=== PATIENT | male | born 1945 | race Caucasian/White ===

== ENCOUNTER 2017-04-17 16:41 | Observation (INO) | payer OTHER, MEDICARE ==
[~2017-04-17] VITALS: Ht 177.8 cm; Wt 65.0 kg
[~2017-04-17 16:41] MED LIST: ALBU.63PRN NEB; AMOX875T2 PO; ERGO50000 PO; LISI-360 PO; OMEP20TA39 PO; SYNT112T PO; TIMO0.2525 EACH EYE
[2017-04-17 16:42] VITALS: BP 126/59; PULSE 72; RESP 16; TEMP 98.5; O2SAT 96
--- NOTE | 2017-04-17 16:50 | PD ---
Physical Exam Time Seen by Provider: 16:48 Narrative 71 y/o male here for evaluation of dyspnea with exertion, fatigue as well as a heart murmur, 17 pound weight loss over past 6 months[facility] Vital signs reviewed. Seen at triage desk. Awaiting bed placement. Data Data Last Documented VS Vital Signs Date Time Temp Pulse Resp B/P (MAP) Pulse Ox O2 Delivery O2 Flow Rate FiO2 04/17/17 16:42 98.5 72 16 126/59 (81) 96 Room Air [facility] Medical Record Reviewed: Yes Supervised Visit with MOSES: Sal Olivera Apr 17, 2017 16:50
[2017-04-17] MEDS ORDERED: SODIUM CHLORIDE 0.9% FLUSH 10 ML FLUSH IVF PRN (17:45)
[2017-04-17 17:46] VITALS: BP 147/65; PULSE 76; RESP 16; O2SAT 97
[2017-04-17] MEDS ORDERED: SODIUM CHLOR 0.9% 1000 ML INJ 1,000 ML IV SCH (17:55)
[2017-04-17] MEDS ORDERED: ONDANSETRON HCL 4 MG/2 ML VIAL IVP ONE (18:00)
[2017-04-17] MEDS ORDERED: PANTOPRAZOLE SODIUM 40 MG VIAL IVP ONE (18:00)
--- NOTE | 2017-04-17 18:03 | PD ---
HPI Chief Complaint: Cardiac Complaint Time Seen by Provider: 17:57 Travel History International Travel<30 days: No Contact w/Intl Traveler<30days: No Traveled to known affect area: No History of Present Illness HPI 71-year-old [facility] with history of increased dyspnea and weakness over the past several weeks. Patient states recent history of nausea treated with [id number] medication and some darker than normal stools over the past several weeks. Patient denies chest pain, cough, wheezing, or lower extremity edema. Patient does have history of heart murmur, but no previous history of CHF. [facility] and sent here for further evaluation and treatment. Patient states he has intermittent episodes of this weakness and dyspnea, but is definitely worse with exertion. Patient's sister is here who relates that the patient is a drinker although he denies drinking more than 2-3 drinks a day. Patient's had decreased appetite over the past several months, with a 17 pound weight loss noted. Patient tends to have trouble with memory and is unsure if he's ever had an endoscopy or colonoscopy. Patient has no known drug allergies. PFSH Past Medical History Anxiety: No Depression: Yes Cancer: No Cardiovascular Problems: Yes High Cholesterol: Yes Chemotherapy: No Diminished Hearing: No Endocrine: Yes Gastrointestinal Disorders: Yes (DIARRHEA. COLONOSCOPY SCHEDULED JUN) Glaucoma: Yes Genitourinary: No Hypertension: Yes Immune Disorder: No Musculoskeletal: No Neurologic: No Psychiatric: Yes Reproductive: No Respiratory: No Radiation Therapy: No Thyroid Disease: Yes Ulcer: Yes Social History Alcohol Use: Yes (1-2 DRINKS PER DAY PER PT) Tobacco Use: No Substance Use: No Allergies-Medications (Allergen,Severity, Reaction): Coded Allergies: No Known Allergies (Verified , 04/17/17) Reported Meds & Prescriptions Reported Meds & Active Scripts Active Reported Mucus Relief ER (Guaifenesin) 600 Mg Tab 400 Mg PO DAILY Fluticasone Nasal [facility] 50 Mcg/Act Naspr 30 Mcg EACH NARE DAILY 50 mcg/spray Timolol Opth Drops 0.5 % Soln 1 Drop EACH EYE DAILY Galantamine (Galantamine Hydrobromide) 4 Mg Tab 2.4 Mg PO DAILY Risperidone 1 Mg Tab 1 Mg PO DAILY Brimonidine Opth Drops (Brimonidine Tartrate) 0.15% Soln 1 Drop EACH EYE BID Amlodipine (Amlodipine Besylate) 5 Mg Tab 5 Mg PO DAILY Escitalopram (Escitalopram Oxalate) 20 Mg Tab 20 Mg PO DAILY Review of Systems ROS Limitations: Poor Historian Except as stated in HPI: all other systems reviewed are Neg General / Constitutional: No: Fever Eyes: No: Visual changes HENT: No: Headaches Cardiovascular: No: Chest Pain or Discomfort Respiratory: Positive: Shortness of Breath, No: Cough, Wheezing, Sneezing, Orthopnea, Hemoptysis, Stridor, Night Sweats, Pleuritic Pain Gastrointestinal: Positive: Nausea, Changes in Bowel Habits, Loss of Appetite, No: Vomiting, Diarrhea, Abdominal Pain, Indigestion, Dysphagia Genitourinary: No: Dysuria Musculoskeletal: No: Pain Skin: No Rash Neurologic: No: Weakness Psychiatric: No: Depression Endocrine: No: Polydipsia Hematologic/Lymphatic: No: Easy Bruising Physical Exam Exam Limitations: Poor Historian Narrative GENERAL: Patient appears in no acute distress. SKIN: Warm and dry. Somewhat diminished pallor. Somewhat diminished turgor as well. HEAD: Atraumatic. Normocephalic. EYES: Pupils equal and round. No scleral icterus. No injection or drainage. Mild to moderate conjunctival pallor bilaterally. ENT: No nasal bleeding or discharge. Mucous membranes pink and moist. Pharynx is clear. Airway is patent. NECK: Trachea midline. Supple nontender. CARDIOVASCULAR: Regular rate and rhythm. Patient is a 2 over 5 holosystolic murmur. This is known to the patient. RESPIRATORY: No accessory muscle use. Clear to auscultation. Breath sounds equal bilaterally. GASTROINTESTINAL: Abdomen soft, non-tender, nondistended. Hepatic and splenic margins not palpable. MUSCULOSKELETAL: Extremities without clubbing, cyanosis, or edema. No obvious deformities. NEUROLOGICAL: Awake and alert. No obvious cranial nerve deficits. Motor grossly within normal limits. Five out of 5 muscle strength in the arms and legs. Normal speech. PSYCHIATRIC: Appropriate mood and affect; insight and judgment normal. Data Data Last Documented VS Vital Signs Date Time Temp Pulse Resp B/P (MAP) Pulse Ox O2 Delivery O2 Flow Rate FiO2 04/17/17 17:46 76 16 147/65 (92) 97 Room Air 04/17/17 16:42 98.5 Orders Orders Electrocardiogram (04/17/17 ) Complete Blood Count With Diff (04/17/17 17:45) Comprehensive Metabolic Panel (04/17/17 17:45) B-Type Natriuretic Peptide (04/17/17 17:45) Magnesium (Mg) (04/17/17 17:45) Ckmb (Isoenzyme) Profile (04/17/17 17:45) Troponin I (04/17/17 17:45) Iv Access Insert/Monitor (04/17/17 17:45) Electrocardiogram (04/17/17 17:45) Ecg Monitoring (04/17/17 17:45) Oximetry (04/17/17 17:45) Chest, Single Ap (04/17/17 17:45) Sodium Chloride 0.9% Flush (Ns Flush) (04/17/17 17:45) Prothrombin Time / Inr (Pt) (04/17/17 17:55) Act Partial Throm Time (Ptt) (04/17/17 17:55) Ondansetron Inj (Zofran Inj) (04/17/17 18:00) Pantoprazole Inj (Protonix Inj) (04/17/17 18:00) Sodium Chlor 0.9% 1000 Ml Inj (Ns 1000 M (04/17/17 17:55) CKMB (04/17/17 18:33) CKMB% (04/17/17 18:33) Pantoprazole Inj (Protonix Inj) (04/17/17 20:15) Admit Order (Ed Use Only) (04/17/17 21:19) Labs Laboratory Tests Test 04/17/17 18:33 White Blood Count 8.9 TH/MM3 Red Blood Count 3.85 MIL/MM3 Hemoglobin 10.8 GM/DL Hematocrit 32.8 % Mean Corpuscular Volume 85.3 FL Mean Corpuscular Hemoglobin 28.1 PG Mean Corpuscular Hemoglobin Concent 32.9 % Red Cell Distribution Width 19.7 % Platelet Count 300 TH/MM3 Mean Platelet Volume 7.8 FL Neutrophils (%) (Auto) 82.8 % Lymphocytes (%) (Auto) 6.2 % Monocytes (%) (Auto) 10.7 % Eosinophils (%) (Auto) 0.0 % Basophils (%) (Auto) 0.3 % Neutrophils # (Auto) 7.4 TH/MM3 Lymphocytes # (Auto) 0.6 TH/MM3 Monocytes # (Auto) 1.0 TH/MM3 Eosinophils # (Auto) 0.0 TH/MM3 Basophils # (Auto) 0.0 TH/MM3 CBC Comment DIFF FINAL Differential Comment Prothrombin Time 10.8 SEC Prothromb Time International Ratio 1.0 RATIO Activated Partial Thromboplast Time 23.6 SEC Blood Urea Nitrogen 17 MG/DL Creatinine 1.75 MG/DL Random Glucose 150 MG/DL Total Protein 7.6 GM/DL Albumin 4.5 GM/DL Calcium Level 9.7 MG/DL Magnesium Level 1.7 MG/DL Alkaline Phosphatase 113 U/L Aspartate Amino Transf (AST/SGOT) 54 U/L Alanine Aminotransferase (ALT/SGPT) 74 U/L Total Bilirubin 0.9 MG/DL Sodium Level 133 MEQ/L Potassium Level 3.9 MEQ/L Chloride Level 93 MEQ/L Carbon Dioxide Level 29.0 MEQ/L Anion Gap 11 MEQ/L Estimat Glomerular Filtration Rate 38 ML/MIN Total Creatine Kinase 142 U/L Creatine Kinase MB 3.6 NG/ML Troponin I LESS THAN 0.02 NG/ML B-Type Natriuretic Peptide 217 PG/ML MDM Medical Decision Making Medical Screen Exam Complete: Yes Emergency Medical Condition: Yes Differential Diagnosis Exertional dyspnea. Coronary syndrome. CHF. Anemia. Possible gastritis. Electrolyte imbalance. History of EtOH abuse. Narrative Course Patient is medically stable at time of exam. EKG is ordered as well as chest x-ray. Labs ordered including CBC, CMP, coagulation studies, urinalysis, cardiac panel. IV access is obtained and the patient is given 40 mg pantoprazole IV, 4 mg Zofran IV, and 1000 mL normal saline bolus. Rectal exam shows guaiac mildly positive. There was not a lot of stool in the vault. CBC shows mildly worse anemia compared to previous with hemoglobin of 10.8, hematocrit of 32.8 CMP shows sodium 133, chloride of 93, creatinine 1.75 which is slightly higher than previous. Random glucose is 150. AST is 54, Troponin is less than 0.02 and BNP is 217. Chest x-ray shows no acute process. Small hiatal hernia is noted. Patient is discussed with Dr. Barajas who feels the patient is at risk for upper GI bleed with history of alcohol use and symptomatic exertional dyspnea. Patient is placed on a pantoprazole drip, and hospitalist's call for admission. Patient was discussed with Dr. Baptiste who accepted the patient for observation. Diagnosis Primary Impression: Upper GI bleed Additional Impressions: Exertional dyspnea Guaiac positive stools Admitting Information Admitting Physician Requests: Admit Condition: Stable Adrian Resendiz Apr 17, 2017 18:03
--- NOTE | 2017-04-17 18:14 | PD ---
Physical Exam Date Seen by Provider: Apr 17, 2017 Narrative This patient was sent to us by the [place] clinic for evaluation of chronic dyspnea on exertion and possible GI blood loss. Data Data Last Documented VS Vital Signs Date Time Temp Pulse Resp B/P (MAP) Pulse Ox O2 Delivery O2 Flow Rate FiO2 04/17/17 17:46 76 16 147/65 (92) 97 Room Air 04/17/17 16:42 98.5 Orders Orders Electrocardiogram (04/17/17 ) Complete Blood Count With Diff (04/17/17 17:45) Comprehensive Metabolic Panel (04/17/17 17:45) B-Type Natriuretic Peptide (04/17/17 17:45) Magnesium (Mg) (04/17/17 17:45) Ckmb (Isoenzyme) Profile (04/17/17 17:45) Troponin I (04/17/17 17:45) Iv Access Insert/Monitor (04/17/17 17:45) Electrocardiogram (04/17/17 17:45) Ecg Monitoring (04/17/17 17:45) Oximetry (04/17/17 17:45) Chest, Single Ap (04/17/17 17:45) Sodium Chloride 0.9% Flush (Ns Flush) (04/17/17 17:45) Prothrombin Time / Inr (Pt) (04/17/17 17:55) Act Partial Throm Time (Ptt) (04/17/17 17:55) Ondansetron Inj (Zofran Inj) (04/17/17 18:00) Pantoprazole Inj (Protonix Inj) (04/17/17 18:00) Sodium Chlor 0.9% 1000 Ml Inj (Ns 1000 M (04/17/17 17:55) MDM Supervised Visit with MOSES: Yes Narrative Course I, Dr. Estrada, have reviewed the advance practice practitioner's documentation and am in agreement, met with the patient face to face, made the diagnosis, and the medical decision making was done by me. *My assessment and Findings: The patient is awake and alert but confused. He does not appear to be in any acute distress. He is a reported alcoholic. He does not smell of alcohol currently. Please see Andrade Resendiz's note for final diagnosis and disposition. Condition: Stable Peg Estrada MD Apr 17, 2017 18:14
--- NOTE | 2017-04-17 18:18 | RADRPT ---
EXAM DATE/TIME: 04/17/2017 17:56 [facility] COMPARISON: CHEST SINGLE AP, November 01, 2015, 9:50. INDICATIONS : Short of breath. MEDICAL HISTORY : None. SURGICAL HISTORY : None. ENCOUNTER: Initial ACUITY: 1 day PAIN SCORE: 0/10 LOCATION: Bilateral chest FINDINGS: A single view of the chest demonstrates the lungs to be symmetrically aerated without evidence of mas s, infiltrate or effusion. The cardiomediastinal contours are unremarkable. Osseous structures are intact. A hiatal hernia is likely. CONCLUSION: No evidence of acute cardiopulmonary disease. Probable hiatal hernia present. Haim Valencia MD on April 17, 2017 at 18:16 Board Certified Radiologist. This report was verified electronically.
[2017-04-17] MEDS ORDERED: AMLO5TAB2 PO (18:29)
[2017-04-17] MEDS ORDERED: GUAI600T11 PO (18:29)
[2017-04-17] MEDS ORDERED: ESCI20TA PO (18:29)
[2017-04-17] MEDS ORDERED: FLUT50SP EACH NARE (18:29)
[2017-04-17] MEDS ORDERED: TIMO0.5S30 EACH EYE (18:29)
[2017-04-17] MEDS ORDERED: BRIM0.155 EACH EYE (18:29)
[2017-04-17] MEDS ORDERED: RISP1TAB2 PO (18:29)
[2017-04-17] MEDS ORDERED: GALA4TAB PO (18:29)
[2017-04-17 18:49] LABS: AUTOMATED NEUTROPHIL # 7.4 TH/MM3 (1.8-7.7); BASOPHIL % 0.3 % (0.0-2.0); HEMATOCRIT 32.8 % (39.0-51.0); HEMO FLAGS DIFF FINAL; LYMPH % 6.2 % (9.0-44.0); LYMPHOCYTE # 0.6 TH/MM3 (1.0-4.8); MEAN CELL VOLUME 85.3 FL (80.0-100.0); MEAN CORPUSCULAR HEMOGLOBIN 28.1 PG (27.0-34.0); MEAN CORPUSCULAR HGB CONC 32.9 % (32.0-36.0); MONO % 10.7 % (0.0-8.0); NEUT % 82.8 % (16.0-70.0); PLATELET COUNT 300 TH/MM3 (150-450); RED BLOOD COUNT 3.85 MIL/MM3 (4.50-5.90); RED CELL DISTRIBUTION WIDTH 19.7 % (11.6-17.2); WHITE BLOOD COUNT 8.9 TH/MM3 (4.0-11.0)
[2017-04-17 19:09] LABS: ANION GAP 11 MEQ/L (5-15); AST (GOT) 54 U/L (15-37); BLOOD UREA NITROGEN 17 MG/DL (7-18); CHLORIDE 93 MEQ/L (98-107); GLOMERULAR FILTRATION RATE 38 ML/MIN (>89); MAGNESIUM 1.7 MG/DL (1.5-2.5); POTASSIUM 3.9 MEQ/L (3.5-5.1); SODIUM (NA) 133 MEQ/L (136-145)
[2017-04-17 19:12] LABS: APTT (PATIENT) 23.6 SEC (24.3-30.1); PROTHROMBIN TIME - PATIENT 10.8 SEC (9.8-11.6)
[2017-04-17 19:13] LABS: ALKALINE PHOSPHATASE 113 U/L (45-117); ALT (GPT) 74 U/L (12-78); CREATINE KINASE 142 U/L (39-308); TOTAL BILIRUBIN ADULT 0.9 MG/DL (0.2-1.0)
[2017-04-17 19:26] LABS: CKMB 3.6 NG/ML (0.5-3.6)
[2017-04-17] MEDS ORDERED: LORazepam 1 MG TAB PO ONE (21:45)
[2017-04-17] MEDS ORDERED: NALOXONE HCL 0.4 MG/ML AMP IV PUSH PRN (21:45)
[2017-04-17] MEDS ORDERED: SODIUM CHLORIDE 0.9% FLUSH 10 ML FLUSH IV FLUSH PRN (21:45)
[2017-04-17 22:00] VITALS: PULSE 69
[2017-04-17 22:25] VITALS: BP 128/58; PULSE 72; RESP 18; TEMP 98.1; O2SAT 98
[2017-04-17] MEDS ORDERED: HALOPERIDOL LACTATE 5 MG/ML AMP IM ONE (23:45)
[2017-04-18] VITALS (7 sets, daily range): BP systolic 101–149; BP diastolic 58–77; PULSE 68–80; RESP 16–20; TEMP 97–98; O2SAT 93–96
[2017-04-18] MEDS: PANTOPRAZOLE INJ 80 MG in SODIUM CHLORIDE 0.9% INJ 100 ML IV SCH ×2 (00:25→20:15)
[2017-04-18 00:55] LABS: HEMATOCRIT 31.7 % (39.0-51.0); REVIEW FLAG FINAL
--- NOTE | 2017-04-18 04:16 | HHI.HP ---
[facility] Admission Diagnosis GI Bleed/Dyspnea with Exertion Diagnoses: Travel History International Travel<30 Days: No Contact w/Intl Traveler <30 Da: No Traveled to Known Affected Are: No History of Present Illness History from patient, ER. [place] Communication, and review of medical records sent by the [place]. Patient himself is somewhat of a poor historian. He was found at the time of my exam on 4 point restraints. He tells me that this is 1978. He thinks it was September. He thinks Peña Astorga is the president. However he is very pleasant and wouldn't answer questions. He basically does not remember why he was in the hospital. He states that he was visiting a friend in He knows he was in a hotel. As per [facility] paperwork that was sent with the patient, patient was seen at the [facility] clinic yesterday April 17, 2017. He was accompanied by his sister. He was complaining of intermittent severe weakness over several months, falling from bed about 3 times in the past few weeks. Sister was reported that patient was having extreme fatigue and sweating with exertion. Patient has had weight loss of 17 pounds since May 2016 visit to the [place] clinic. Further records, patient has chronic intermittent nausea and diarrhea as well. Does have chronic memory problems. Sister reports that patient forgets to take his medications at times. last seen by pcp previous to today was 01/2016 because he forgets appointments In the emergency room, patient was found to have positive guaiac. Apparently there was also complained of dark stool. Review of Systems Except as stated in HPI: all other systems reviewed are Neg Past Family Social History Past Medical History GI ulcers GERD oropharyngeal dysphagia glaucoma catarct hypogonadism carotid artery stenosis cognitive impairment depression hypertension OA colonic polyps hypothyroidism Past Surgical History none per patient [facility] not [facility] Reported Medications pt is non compliant, forgetful to take meds he tells me he is not taking any Allergies: Coded Allergies: No Known Allergies (Verified , 04/17/17) Family History none that he knows of Social History denies smoking/ etoh abuse or drug abuse states quit smoking in high school denies any iv drug abuse Physical Exam Vital Signs Vital Signs Date Time Temp Pulse Resp B/P (MAP) Pulse Ox O2 Delivery O2 Flow Rate FiO2 04/18/17 04:00 97.0 78 141/69 (93) 93 04/17/17 22:25 98.1 72 18 128/58 (81) 98 04/17/17 22:00 69 04/17/17 17:46 76 16 147/65 (92) 97 Room Air 04/17/17 16:42 98.5 72 16 126/59 (81) 96 Room Air Physical Exam GENERAL: This is a well-nourished, well-developed patient, in no apparent distress. Confused, but pleasant at the time of my exam. SKIN: No rashes, ecchymoses or lesions. Cool and dry. HEAD: Atraumatic. Normocephalic. No temporal or scalp tenderness. EYES: No scleral icterus. No injection or drainage. ENT: Nose without bleeding, purulent drainage or septal hematoma. Airway patent. NECK: Trachea midline. No JVD or lymphadenopathy. Supple, nontender, no meningeal signs. CARDIOVASCULAR: Regular rate and rhythm without murmurs, gallops, or rubs. RESPIRATORY: Clear to auscultation. Breath sounds equal bilaterally. No wheezes , rales, or rhonchi. GASTROINTESTINAL: Abdomen soft, non-tender, nondistended. No guarding. MUSCULOSKELETAL: Extremities without clubbing, cyanosis, or edema. No calf tenderness. NEUROLOGICAL: Awake and alert. Motor and sensory grossly within normal limits. Normal speech. Laboratory Laboratory Tests Test 04/17/17 18:33 04/18/17 00:20 White Blood Count 8.9 Red Blood Count 3.85 Hemoglobin 10.8 10.3 Hematocrit 32.8 31.7 Mean Corpuscular Volume 85.3 Mean Corpuscular Hemoglobin 28.1 Mean Corpuscular Hemoglobin Concent 32.9 Red Cell Distribution Width 19.7 Platelet Count 300 Mean Platelet Volume 7.8 Neutrophils (%) (Auto) 82.8 Lymphocytes (%) (Auto) 6.2 Monocytes (%) (Auto) 10.7 Eosinophils (%) (Auto) 0.0 Basophils (%) (Auto) 0.3 Neutrophils # (Auto) 7.4 Lymphocytes # (Auto) 0.6 Monocytes # (Auto) 1.0 Eosinophils # (Auto) 0.0 Basophils # (Auto) 0.0 CBC Comment DIFF FINAL Differential Comment Prothrombin Time 10.8 Prothromb Time International Ratio 1.0 Activated Partial Thromboplast Time 23.6 Blood Urea Nitrogen 17 Creatinine 1.75 Random Glucose 150 Total Protein 7.6 Albumin 4.5 Calcium Level 9.7 Magnesium Level 1.7 Alkaline Phosphatase 113 Aspartate Amino Transf (AST/SGOT) 54 Alanine Aminotransferase (ALT/SGPT) 74 Total Bilirubin 0.9 Sodium Level 133 Potassium Level 3.9 Chloride Level 93 Carbon Dioxide Level 29.0 Anion Gap 11 Estimat Glomerular Filtration Rate 38 Total Creatine Kinase 142 Creatine Kinase MB 3.6 Troponin I LESS THAN 0.02 B-Type Natriuretic Peptide 217 Result Diagram: 04/18/17 0020 04/17/17 1833 Imaging Last 48 hours Impressions Chest X-Ray 04/17/17 1745 Signed Impressions: Service Date/Time: Monday, April 17, 2017 17:56 - CONCLUSION: No evidence of acute cardiopulmonary disease. Probable hiatal hernia present. Haim Valencia MD echo 09/2015 [place] - grade I diastolic dysfunction, EF 65-70% right ventricular pressure 40-50mmHg Caprini VTE Risk Assessment Caprini VTE Risk Assessment: Mod/High Risk (score >= 2) Caprini Risk Assessment Model Point Value = 1 Point Value = 2 Point Value = 3 Point Value = 5 Age 41-60 Minor surgery BMI > 25 kg/m2 Swollen legs Varicose veins or History of unexplained or recurrent spontaneous Oral contraceptives or hormone replacement Sepsis (< 1 month) Serious lung disease, including pneumonia (< 1 month) Abnormal pulmonary function Acute myocardial infarction Congestive heart failure (< 1 month) History of inflammatory bowel disease Medical patient at bed rest Age 61-74 Arthroscopic surgery Major open surgery (> 45 min) Laparoscopic surgery (> 45 min) Malignancy Confined to bed (> 72 hours) Immobilizing plaster cast Central venous access Age >= 75 History of VTE Family history of VTE Factor V Leiden Prothrombin [id number] Lupus anticoagulant Anticardiolipin antibodies Elevated serum homocysteine Heparin-induced thrombocytopenia Other congenital or acquired thrombophilia Stroke (< 1 month) Elective arthroplasty Hip, pelvis, or leg fracture Acute spinal cord injury (< 1 month) Prophylaxis Regimen Total Risk Factor Score Risk Level Prophylaxis Regimen 0-1 Low Early ambulation 2 Moderate Order ONE of the following: *Sequential Compression Device (SCD) *Heparin 5000 units SQ BID 3-4 Higher Order ONE of the following medications: *Heparin 5000 units SQ TID *Enoxaparin/Lovenox 40 mg SQ daily (WT < 150 kg, CrCl > 30 mL/min) *Enoxaparin/Lovenox 30 mg SQ daily (WT < 150 kg, CrCl > 10-29 mL/min) *Enoxaparin/Lovenox 30 mg SQ BID (WT < 150 kg, CrCl > 30 mL/min) AND/OR *Sequential Compression Device (SCD) 5 or more Highest Order ONE of the following medications: *Heparin 5000 units SQ TID (Preferred with Epidurals) *Enoxaparin/Lovenox 40 mg SQ daily (WT < 150 kg, CrCl > 30 mL/min) *Enoxaparin/Lovenox 30 mg SQ daily (WT < 150 kg, CrCl > 10-29 mL/min) *Enoxaparin/Lovenox 30 mg SQ BID (WT < 150 kg, CrCl > 30 mL/min) AND *Sequential Compression Device (SCD) Assessment and Plan Assessment and Plan Impression: generalized weakness and falls dyspnea on exertion Positive Guaiac 17lbs weight loss since 05/2016 altered mental status- likely from delirium from dementia- but rule out acute issues such as urine retention/ UTI/intracranial etiologies Hypertension History of GI ulcers GERD oropharyngeal dysphagia History of carotid artery stenosis History of depression History of cognitive impairment/dementia Osteoarthritis History of colonic polyps Hypothyroidism Plan: serial hgb/hct ppi drip gi consulted for anemia and weight loss workup fall precautions Would obtain CT of the brain to rule out intracranial etiologies as the cause of his delirium/confusion. Although patient does have history of dementia/ cognitive impairment her chart, patient was apparently awake and alert enough to be given some of the history to the ER team. However upon his stay in the [facility], he was quite combative and delirious that he required restraints per nursing staff. Therefore would need to rule out intracranial etiologies. Also obtain bladder scan now. Blood alcohol level. Alcohol withdrawal precautions. Patient reports he drinks only about 2-3 beers and not every day. Once in a while. However her sister was reporting to staff members that he drinks about 3 beers a day. Would need to make sure his confusion and delirium is not from alcohol withdrawal. DVT prophylaxiswith SCD. GI prophylaxis on pantoprazole. Discussed Condition With Patient, patient's nurse, ER Lakshmi Sanchez MD Apr 18, 2017 04:16
[2017-04-18 07:38] LABS: BASOPHIL % 0.2 % (0.0-2.0); EOSINOPHIL % 0.3 % (0.0-4.0); HEMATOCRIT 31.3 % (39.0-51.0); HEMO FLAGS DIFF FINAL; LYMPH % 5.9 % (9.0-44.0); LYMPHOCYTE # 0.5 TH/MM3 (1.0-4.8); MEAN CELL VOLUME 85.5 FL (80.0-100.0); MEAN CORPUSCULAR HEMOGLOBIN 27.3 PG (27.0-34.0); MONO % 8.8 % (0.0-8.0); NEUT % 84.8 % (16.0-70.0); PLATELET COUNT 288 TH/MM3 (150-450); RED BLOOD COUNT 3.67 MIL/MM3 (4.50-5.90); RED CELL DISTRIBUTION WIDTH 20.1 % (11.6-17.2); WHITE BLOOD COUNT 8.2 TH/MM3 (4.0-11.0)
--- NOTE | 2017-04-18 07:46 | EKG ---
Date Performed: 04/17/2017 Time Performed: 18:16:28 PTAGE: 71 years EKG: Sinus rhythm NONSPECIFIC T-WAVE ABNORMALITY PROLONGED QT INTERVAL ABNORMAL ECG Since PREVIOUS TRACING , no significant change noted PREVIOUS TRACIN10/28/2015 11.24 DOCTOR: Joann Locke Interpretating Date/Time 04/18/2017 07:45:01
[2017-04-18 07:53] LABS: BICARBONATE 29.1 MEQ/L (21.0-32.0); POTASSIUM 3.2 MEQ/L (3.5-5.1)
[2017-04-18] MEDS: SODIUM CHLOR 0.9% 1000 ML INJ 1,000 ML IV SCH (08:00)
--- NOTE | 2017-04-18 11:25 | HHI.PR ---
Subjective Remarks Follow-up for GI bleed, chest discomfort. The patient is seen with RN at bedside. He is not a great historian. The patient thinks that he was sent from the [place] has of "heart pain". He locates the pain around his xiphoid process. He states he last had the pain 3 days ago. He denies any shortness of breath. He hasn't noticed any dark or bloody stools. No lower extremity swelling. He thinks he might have had a stress test recently with the [place], but he does not remember the results. He does not recall any history of heart disease. Objective Vitals Vital Signs Date Time Temp Pulse Resp B/P (MAP) Pulse Ox O2 Delivery O2 Flow Rate FiO2 04/18/17 08:00 97.9 70 16 149/77 (101) 95 04/18/17 04:00 97.0 78 141/69 (93) 93 04/17/17 22:25 98.1 72 18 128/58 (81) 98 04/17/17 22:00 69 04/17/17 17:46 76 16 147/65 (92) 97 Room Air 04/17/17 16:42 98.5 72 16 126/59 (81) 96 Room Air Result Diagram: 04/18/17 0637 04/18/17 0637 Imaging Last Impressions Chest X-Ray 04/17/17 1745 Signed Impressions: Service Date/Time: Monday, April 17, 2017 17:56 - CONCLUSION: No evidence of acute cardiopulmonary disease. Probable hiatal hernia present. Haim Valencia MD Objective Remarks GENERAL: Well-developed well-nourished. In no acute distress. SKIN: Warm and dry. No lesions noted. HEENT: Normocephalic. Pupils equal and round. Mucous membranes pink and moist. CARDIOVASCULAR: Regular rate and rhythm. No murmur appreciated. No chest wall TTP. RESPIRATORY: No accessory muscle use. Clear to auscultation. Breath sounds equal bilaterally. GASTROINTESTINAL: Abdomen soft, non-tender, nondistended. Bowel sounds x4. MUSCULOSKELETAL: No obvious deformities. No clubbing or cyanosis. No edema. NEUROLOGICAL: Awake and alert. No focal neurological deficits. Moves upper and lower extremities spontaneously. Normal speech. PSYCHIATRIC: Presently pleasant mood and calm affect; insight and judgment fair. A/P Assessment and Plan 71-year-old male with past medical history of dementia, GERD/PUD [facility] and weakness over the past several weeks. Generalized weakness: Workup as below. PT eval and treat. Acute encephalopathy: Seems to be improving currently. Possibly related to dementia with agitation. Alcohol level within normal limits. Head CT and drug screen ordered. Add UA. Restraints if needed. GI bleed: Hemoccult positive in the ED. Reported history of GERD/ulcers. Normocytic anemia, currently stable. Continue Protonix gtt. Consult gastroenterology. Monitor H&H. Atypical chest pain: Possibly secondary to GI etiology as above. Initial troponin within normal limits. EKG with NSR, nonspecific T-wave changes. Chest x-ray clear, hiatal hernia. Continue to trend cardiac enzymes and EKGs. Hold aspirin with GI bleed. Monitor on telemetry. PEBBLES: Creatinine 1.75, previously 0.85 on 11/06/15. Creatinine did improve to 1.44 with IVF. Continue IVF and follow-up BMP. Hypokalemia: Mild. Potassium 3.2. Replace orally. Follow up potassium and check magnesium. Mood disorder: Possibly exacerbating encephalopathy as above. Questionable medication compliance. Resume home Risperdal, escitalopram. Hypertension: BP recently controlled. Continue amlodipine. DVT prophylaxis: SCDs Discharge Planning Follow-up chest pain workup. Follow GI recommendations. Follow-up PT recommendations. Dane Lara Apr 18, 2017 11:25
[2017-04-18] MEDS: SODIUM CHLORIDE 0.9% FLUSH 10 ML FLUSH IV FLUSH SCH ×2 (11:41→20:16)
[2017-04-18] MEDS: ESCITALOPRAM OXALATE 20 MG TAB PO SCH (11:41)
[2017-04-18] MEDS: risperiDONE 1 MG TAB PO SCH (11:42)
[2017-04-18] MEDS: GALANTAMINE HYDROBROMIDE 4 MG TAB PO SCH (11:42)
[2017-04-18] MEDS: amLODIPine BESYLATE 5 MG TAB PO SCH (11:42)
[2017-04-18] MEDS ORDERED: POTASSIUM CHLORIDE 20 MEQ CONTROLLED RELEASE TAB PO ONE (12:00)
--- NOTE | 2017-04-18 12:31 | PD.CONS ---
HPI History of Present Illness This is a 71 year old male who presented to the emergency room for evaluation of fatigue and dyspnea on exertion. He is a poor historian. Apparently, he was referred from the [facility], complaining of intermittent severe generalized weakness with frequent falls for the past several months. He has a decreased appetite and has lost about 17 lbs since May of 2016. He reports intermittent nausea for the past several months. He takes an antiemetic at home , but does not recall the name. Usually, the nausea will start first and he takes his medicine. He states that the nausea then resolves and he has a pressure like pain in his epigastric area and eventually it resolves. He reports that he has been having loose dark stools for the past month, but has not had any today. He also has frequent heartburn. He denies any history of peptic ulcer disease. He does not drink, although he has in the past. At one point, there was talk of possible liver cirrhosis, but that he does not know for sure if he actually has this. According to the records, he has a history of GERD, stomach ulcers, oropharyngeal dysphagia, and colon polyps. He cannot recall when his last EGD/Colonoscopy was, but states he has had them both not too long ago. (Chayito Renae) PFSH Past Medical History GI ulcers GERD Oropharyngeal dysphagia Glaucoma Catarct Hypogonadism Carotid artery stenosis Cognitive impairment Depression Hypertension OA Colonic polyps Hypothyroidism Past Surgical History Pt states multiple surgeries years ago. EGD/Colonoscopy (Chayito Renae) Coded Allergies: No Known Allergies (Verified , 04/17/17) Medications Allergies Coded Allergies Type Severity Reaction Last Updated Verified No Known Allergies 04/17/17 Yes Active Scripts Medications Dose Route/Sig Max Daily Dose Days Date Category Dose Instructions Mucus Relief ER (Guaifenesin) 600 Mg Tab 400 Mg PO DAILY 04/17/17 Reported Fluticasone Nasal Stout 50 Mcg/Act Naspr 30 Mcg EACH NARE DAILY 04/17/17 Reported 50 mcg/spray Timolol Opth Drops 0.5 % Soln 1 Drop EACH EYE DAILY 04/17/17 Reported Galantamine (Galantamine Hydrobromide) 4 Mg Tab 2.4 Mg PO DAILY 04/17/17 Reported Risperidone 1 Mg Tab 1 Mg PO DAILY 04/17/17 Reported Brimonidine Opth Drops (Brimonidine Tartrate) 0.15% Soln 1 Drop EACH EYE BID 04/17/17 Reported Amlodipine (Amlodipine Besylate) 5 Mg Tab 5 Mg PO DAILY 04/17/17 Reported Escitalopram (Escitalopram Oxalate) 20 Mg Tab 20 Mg PO DAILY 04/17/17 Reported Family History Unable to obtain Social History Denies smoking/etoh abuse or drug abuse States quit smoking in high school Denies any iv drug abuse (Chayito Renae) Review of Systems Constitutional: COMPLAINS OF: Fatigue, Weight loss, Change in appetite Respiratory: DENIES: Cough Cardiovascular: DENIES: Chest pain Gastrointestinal: COMPLAINS OF: Abdominal pain, Black stools, Nausea, Heartburn , DENIES: Bloody stools, Constipation, Diarrhea, Vomiting Musculoskeletal: COMPLAINS OF: Joint pain, Back pain Hematologic/lymphatic: COMPLAINS OF: Bruising Neurologic: DENIES: Headache Psychiatric: COMPLAINS OF: Confusion (Chayito Renae) GI Exam Vitals I&O Vital Signs Date Time Temp Pulse Resp B/P (MAP) Pulse Ox O2 Delivery O2 Flow Rate FiO2 04/18/17 08:00 97.9 70 16 149/77 (101) 95 04/18/17 04:00 97.0 78 141/69 (93) 93 04/17/17 22:25 98.1 72 18 128/58 (81) 98 04/17/17 22:00 69 04/17/17 17:46 76 16 147/65 (92) 97 Room Air 04/17/17 16:42 98.5 72 16 126/59 (81) 96 Room Air Imaging Last Impressions Chest X-Ray 04/17/17 4316 Signed Impressions: Service Date/Time: Monday, April 17, 2017 17:56 - CONCLUSION: No evidence of acute cardiopulmonary disease. Probable hiatal hernia present. Haim Valencia MD Laboratory Test 04/17/17 18:33 04/18/17 00:20 04/18/17 06:37 White Blood Count 8.9 TH/MM3 8.2 TH/MM3 Red Blood Count 3.85 MIL/MM3 3.67 MIL/MM3 Hemoglobin 10.8 GM/DL 10.3 GM/DL 10.0 GM/DL Hematocrit 32.8 % 31.7 % 31.3 % Mean Corpuscular Volume 85.3 FL 85.5 FL Mean Corpuscular Hemoglobin 28.1 PG 27.3 PG Mean Corpuscular Hemoglobin Concent 32.9 % 32.0 % Red Cell Distribution Width 19.7 % 20.1 % Platelet Count 300 TH/MM3 288 TH/MM3 Mean Platelet Volume 7.8 FL 7.9 FL Neutrophils (%) (Auto) 82.8 % 84.8 % Lymphocytes (%) (Auto) 6.2 % 5.9 % Monocytes (%) (Auto) 10.7 % 8.8 % Eosinophils (%) (Auto) 0.0 % 0.3 % Basophils (%) (Auto) 0.3 % 0.2 % Neutrophils # (Auto) 7.4 TH/MM3 7.0 TH/MM3 Lymphocytes # (Auto) 0.6 TH/MM3 0.5 TH/MM3 Monocytes # (Auto) 1.0 TH/MM3 0.7 TH/MM3 Eosinophils # (Auto) 0.0 TH/MM3 0.0 TH/MM3 Basophils # (Auto) 0.0 TH/MM3 0.0 TH/MM3 CBC Comment DIFF FINAL DIFF FINAL Differential Comment Prothrombin Time 10.8 SEC Prothromb Time International Ratio 1.0 RATIO Activated Partial Thromboplast Time 23.6 SEC Blood Urea Nitrogen 17 MG/DL 15 MG/DL Creatinine 1.75 MG/DL 1.44 MG/DL Random Glucose 150 MG/DL 119 MG/DL Total Protein 7.6 GM/DL Albumin 4.5 GM/DL Calcium Level 9.7 MG/DL 9.1 MG/DL Magnesium Level 1.7 MG/DL Alkaline Phosphatase 113 U/L Aspartate Amino Transf (AST/SGOT) 54 U/L Alanine Aminotransferase (ALT/SGPT) 74 U/L Total Bilirubin 0.9 MG/DL Sodium Level 133 MEQ/L 138 MEQ/L Potassium Level 3.9 MEQ/L 3.2 MEQ/L Chloride Level 93 MEQ/L 99 MEQ/L Carbon Dioxide Level 29.0 MEQ/L 29.1 MEQ/L Anion Gap 11 MEQ/L 10 MEQ/L Estimat Glomerular Filtration Rate 38 ML/MIN 48 ML/MIN Total Creatine Kinase 142 U/L Creatine Kinase MB 3.6 NG/ML Troponin I LESS THAN 0.02 NG/ML B-Type Natriuretic Peptide 217 PG/ML Ethyl Alcohol Level LESS THAN 3 MG/DL Physical Examination HEENT: Normocephalic; atraumatic; no jaundice. CHEST: CTA CARDIAC: RRR ABDOMEN: Soft, nondistended, nontender; no hepatosplenomegaly; bowel sounds are present in all four quadrants. EXTREMITIES: No clubbing, cyanosis, or edema. SKIN: Normal; no rash; no jaundice. DIRECTOR OF CASINO MARKETING: No focal deficits; alert and oriented to place and person (Chayito Renae) Assessment and Plan Plan ASSESSMENT: - Melena, Hemoccult stools. Pt with hx of PUD. Pt reports dark stools x 1 month with intermittent nausea/epigastric pain. Has hx of GERD and PUD. Poor historian. Followed at [facility]. HH 10.0/31.3. - Anemia. HH 10.0/31.3. - Nausea/epigastric pain. One month hx of nausea, followed by pressure in epigastric area, relieved with antiemetic. Hx of GERD/PUD. PPI. EGD today. - Decreased appetite, weight loss. Cannot recall when he had EGD/Colonoscopy, but states he has had not that long ago at [facility]. - PEBBLES. Creat 1.44. Per attending. - Congnitive impairment, htn, hypothyroidism per attending. PLAN: - EGD in am once consents obtained (unable to reach family for consents today) - Obtain consents - NPO after MN - PPI - Monitor labs - CBC, BMP in am - Supportive care - Further recommendations to follow based on results of above - Pt seen and examined by Dr. Gil and myself and this note is written on his behalf (Chayito Renae) Physician Comments Patient seen and examined Agree with above Continue with current supportive care Monitor labs Transfuse if needed EGD once consented (Wilfred Gil MD) Chayito Renae Apr 18, 2017 12:31 Wilfred Gil MD Apr 18, 2017 15:43
--- NOTE | 2017-04-18 18:06 | RADRPT ---
EXAM DATE/TIME: 04/18/2017 17:49 [facility] COMPARISON: MRI BRAIN W/O CONTRAST, November 02, 2015, 10:13. CT BRAIN W/O CONTRAST, October 28, 2015, 10:54. INDICATIONS : Altered mental status. RADIATION DOSE: 56.35 CTDIvol (mGy) MEDICAL HISTORY : Non-responsive. SURGICAL HISTORY : None. ENCOUNTER: Initial ACUITY: 1 day PAIN SCALE: 0/10 LOCATION: cranial TECHNIQUE: Multiple contiguous axial images were obtained of the head. Using automated exposure control and adj ustment of the mA and/or kV according to patient size, radiation dose was kept as low as reasonably a chievable to obtain optimal diagnostic quality images. DICOM format image data is available electro nically for review and comparison. FINDINGS: CEREBRUM: The ventricles are normal for age. No evidence of midline shift, mass lesion, hemorrhage or acute in farction. No extra-axial fluid collections are seen. POSTERIOR FOSSA: The cerebellum and brainstem are intact. The 4th ventricle is midline. The cerebellopontine angle i s unremarkable. EXTRACRANIAL: The visualized portion of the orbits is intact. SKULL: The calvaria is intact. No evidence of skull fracture. CONCLUSION: No acute intracranial abnormality. Atrophy again noted. Haim Valencia MD on April 18, 2017 at 18:03 Board Certified Radiologist. This report was verified electronically.
[2017-04-19] VITALS (7 sets, daily range): BP systolic 119–155; BP diastolic 58–79; PULSE 70–114; RESP 18; TEMP 97.5–98.7; O2SAT 94–97
[2017-04-19 07:32] LABS: HEMATOCRIT 30.1 % (39.0-51.0); MEAN CELL VOLUME 86.8 FL (80.0-100.0); MEAN CORPUSCULAR HEMOGLOBIN 28.2 PG (27.0-34.0); MEAN CORPUSCULAR HGB CONC 32.5 % (32.0-36.0); PLATELET COUNT 228 TH/MM3 (150-450); RED BLOOD COUNT 3.47 MIL/MM3 (4.50-5.90); RED CELL DISTRIBUTION WIDTH 19.5 % (11.6-17.2); REVIEW FLAG FINAL; WHITE BLOOD COUNT 5.6 TH/MM3 (4.0-11.0)
[2017-04-19 07:54] LABS: BICARBONATE 28.8 MEQ/L (21.0-32.0)
[2017-04-19] MEDS ORDERED: POTASSIUM CHLOR 20 MEQ PREMIX 100 ML IV ONE (08:15)
[2017-04-19] MEDS ORDERED: POTASSIUM CHLORIDE 20 MEQ CONTROLLED RELEASE TAB PO ONE (08:15)
--- NOTE | 2017-04-19 09:10 | HHI.PR ---
Subjective Remarks Follow-up for GI bleed, generalized weakness, altered mental status. The patient is much more oriented today. He does state he has memory problems at baseline. He states the year is 2010 or 2011 and the month is April. 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 He knows he is in [facility] and he is oriented to self. He is agreeable to EGD today, reportedly refused yesterday. He denies any chest pain or shortness of breath. He is not sure what medications he takes at home. He does live with his sister who helps care for him. He feels like he is a little unsteady on his feet. He denies any abdominal pain or dysuria. Discussed with RN. Objective Vitals Vital Signs Date Time Temp Pulse Resp B/P (MAP) Pulse Ox O2 Delivery O2 Flow Rate FiO2 04/19/17 08:10 98.0 73 18 134/71 (92) 95 04/19/17 03:50 98.1 75 18 134/68 (90) 94 04/18/17 23:43 97.4 79 16 134/64 (87) 96 04/18/17 21:20 68 04/18/17 19:44 97.6 80 18 111/60 (77) 93 04/18/17 16:47 97.9 75 16 101/58 (72) 96 04/18/17 12:00 98.0 79 20 144/75 (98) 94 Result Diagram: 04/19/17 0640 04/19/17 0640 Imaging Last Impressions Head CT 04/18/17 0000 Signed Impressions: Service Date/Time: March 17:49 - CONCLUSION: No acute intracranial abnormality. Atrophy again noted. Haim Valencia MD Chest X-Ray 04/17/17 9850 Signed Impressions: Service Date/Time: Monday, April 17, 2017 17:56 - CONCLUSION: No evidence of acute cardiopulmonary disease. Probable hiatal hernia present. Haim Valencia MD Objective Remarks GENERAL: Well-developed well-nourished. In no acute distress. Oriented to person and place, but not to time. SKIN: Warm and dry. No lesions noted. HEENT: Normocephalic. Pupils equal and round. Mucous membranes pink and moist. CARDIOVASCULAR: Regular rate and rhythm. No murmur appreciated. RESPIRATORY: No accessory muscle use. Clear to auscultation. Breath sounds equal bilaterally. GASTROINTESTINAL: Abdomen soft, non-tender, nondistended. Bowel sounds x4. MUSCULOSKELETAL: No obvious deformities. No clubbing or cyanosis. No edema. NEUROLOGICAL: Awake and alert. No focal neurological deficits. Moves upper and lower extremities spontaneously. Normal speech. PSYCHIATRIC: Pleasant mood and affect; insight and judgment fair with some confusion noted. A/P Assessment and Plan 71-year-old male with past medical history of dementia, GERD/PUD who was sent from the [facility] for shortness of breath and weakness over the past several weeks. Generalized weakness: Workup as below. PT eval and treat. Acute encephalopathy: Seems to be improving currently. Alcohol level within normal limits. Head CT with age-related changes, no acute process. TSH elevated. Questionable medication compliance. Drug screen and UA ordered. GI bleed: Hemoccult positive in the ED. Reported history of GERD/ulcers. Normocytic anemia, currently stable. Continue Protonix gtt. Consulted gastroenterology, consent obtained, planning for EGD. Monitor H&H, currently stable. Atypical chest pain: Possibly secondary to GI etiology as above. ACS ruled out per protocol. Troponin negative 3. EKG with NSR, nonspecific T-wave changes. Chest x-ray clear, hiatal hernia. Hold aspirin with GI bleed. Monitor on telemetry. No further complaints. PEBBLES: Creatinine 1.75, previously 0.85 on 11/06/15. Creatinine did improve to 1.15 with IVF. Continue IVF and follow-up BMP. Hypokalemia: Potassium 3.0. Magnesium within normal limits. Replace orally and by IV. Follow up potassium. Mood disorder: Possibly exacerbating encephalopathy as above. Continue home Risperdal, escitalopram. Hypertension: BP controlled. Continue amlodipine. Hypothyroidism: By history and elevated TSH, suspect medication noncompliance. Resume levothyroxine at 100 g and follow-up thyroid function in 4 weeks. DVT prophylaxis: SCDs Discharge Planning Follow up GI recommendations. Case management consulted for assistance with DC planning. Possibly Home with home health care and sisters assistance or SNF. Dane Lara Apr 19, 2017 09:10
[2017-04-19] MEDS: SODIUM CHLOR 0.9% 1000 ML INJ 1,000 ML IV SCH ×2 (09:18→14:00)
[2017-04-19] MEDS: risperiDONE 1 MG TAB PO SCH (09:19)
[2017-04-19] MEDS: ESCITALOPRAM OXALATE 20 MG TAB PO SCH (09:19)
[2017-04-19] MEDS: SODIUM CHLORIDE 0.9% FLUSH 10 ML FLUSH IV FLUSH SCH ×2 (09:19→20:40)
[2017-04-19] MEDS: amLODIPine BESYLATE 5 MG TAB PO SCH (09:19)
[2017-04-19] MEDS: GALANTAMINE HYDROBROMIDE 4 MG TAB PO SCH (09:21)
[2017-04-19] MEDS: LEVOTHYROXINE SODIUM 100 MCG TAB PO SCH (09:22)
--- NOTE | 2017-04-19 10:23 | EKG ---
Date Performed: 04/18/2017 Time Performed: 20:03:21 PTAGE: 71 years EKG: Sinus rhythm NONSPECIFIC T-WAVE ABNORMALITY BORDERLINE ECG PREVIOUS TRACING : 04/18/2017 12.35 Compared to prior tracing no significant change DOCTOR: Felipe Sterling Interpretating Date/Time 04/19/2017 10:18:29
--- NOTE | 2017-04-19 10:23 | EKG ---
Date Performed: 04/18/2017 Time Performed: 12:35:47 PTAGE: 71 years EKG: Sinus rhythm NONSPECIFIC T-WAVE ABNORMALITY PROLONGED QT INTERVAL ABNORMAL ECG PREVIOUS TRACING : 04/17/2017 18.16 Compared to prior tracing no significant change DOCTOR: Felipe Sterling Interpretating Date/Time 04/19/2017 10:18:38
[2017-04-19] MEDS ORDERED: LIDOCAINE HCL 1% PF 5 ML AMPULE OTHER ONE (12:00)
[2017-04-19] MEDS ORDERED: PROPOFOL 200 MG/20 ML AMP IV ONE (12:00)
--- NOTE | 2017-04-19 12:22 | PD.PROCEDR ---
GI Procedure PROCEDURE PERFORMED Upper endoscopy with biopsy INDICATION FOR PROCEDURE Melena and anemia possible upper GI bleed PROCEDURE: The procedure, risks and benefits were discussed with Mr. Alvarez and informed consent was obtained. Anesthesia sedated him with Diprivan. He was placed in the left lateral decubitus position. EGD: The Pentax videoscope was introduced through the oropharynx and advanced to the second portion of the duodenum under direct visualization. Retroflexion was performed in the stomach biopsy from the antrum. FINDINGS: Mild esophagitis Large hiatal hernia with erythema incited consistent with possible Los ulceration Gastritis with small ulceration in the antrum No active bleed ESTIMATED BLOOD LOSS: None SPECIMENS REMOVED: Antrum COMPLICATIONS: None IMPRESSION: No active bleeding Mild esophagitis Los ulceration with hiatal hernia Gastritis PLAN: November patient Start PPI [facility] depending on when he had the last one Okay to discharge from GI Emily Rosales MD Apr 19, 2017 12:22
--- NOTE | 2017-04-19 12:25 | HHI.GIFU ---
Subjective Remarks Patient laying in bed comfortably, seemed to be more alert today, Objective Vitals I&O Vital Signs Date Time Temp Pulse Resp B/P (MAP) Pulse Ox O2 Delivery O2 Flow Rate FiO2 04/19/17 08:10 98.0 73 18 134/71 (92) 95 04/19/17 07:00 72 04/19/17 03:50 98.1 75 18 134/68 (90) 94 04/18/17 23:43 97.4 79 16 134/64 (87) 96 04/18/17 21:20 68 04/18/17 19:44 97.6 80 18 111/60 (77) 93 04/18/17 16:47 97.9 75 16 101/58 (72) 96 I/O 04/18/17 04/18/17 04/18/17 04/19/17 04/19/17 04/19/17 07:00 15:00 23:00 07:00 15:00 23:00 Intake Total 200 ml Balance 200 ml Other 200 ml Laboratory Laboratory Tests Test 04/18/17 20:30 04/19/17 06:40 Troponin I LESS THAN 0.02 White Blood Count 5.6 Red Blood Count 3.47 Hemoglobin 9.8 Hematocrit 30.1 Mean Corpuscular Volume 86.8 Mean Corpuscular Hemoglobin 28.2 Mean Corpuscular Hemoglobin Concent 32.5 Red Cell Distribution Width 19.5 Platelet Count 228 Mean Platelet Volume 8.2 Blood Urea Nitrogen 10 Creatinine 1.15 Random Glucose 106 Calcium Level 8.5 Sodium Level 137 Potassium Level 3.0 Chloride Level 101 Carbon Dioxide Level 28.8 Anion Gap 7 Estimat Glomerular Filtration Rate 62 Thyroid Stimulating Hormone 3rd Gen 11.800 Physical Exam HEENT: Pupils round and reactive to light; normocephalic; atraumatic; no jaundice. Throat is clear. NECK: Neck is supple, no JVD, no lymphadenopathy. CHEST: Chest is clear to auscultation and percussion. CARDIAC: Regular rate and rhythm with no murmur gallop or rubs. ABDOMEN: Soft, nondistended, nontender; no hepatosplenomegaly; bowel sounds are present in all four quadrants. EXTREMITIES: No clubbing, cyanosis, or edema. SKIN: Normal; no rash; no jaundice. ALMOND GRINDER: No focal deficits; alert and oriented times 2. Assessment and Plan Plan ASSESSMENT: - Melena, Hemoccult stools. Pt with hx of PUD. Pt reports dark stools x 1 month with intermittent nausea/epigastric pain. Has hx of GERD and PUD. Poor historian. Followed at [facility]. HH 10.0.. - Anemia. HH 10.0.. - Nausea/epigastric pain. One month hx of nausea, followed by pressure in epigastric area, relieved with antiemetic. Hx of GERD/PUD. PPI. EGD today. - Decreased appetite, weight loss. Cannot recall when he had EGD/Colonoscopy, but states he has had not that long ago at [facility]. - PEBBLES. Creat 1.44. Per attending. - Congnitive impairment, htn, hypothyroidism per attending. 04/19/2017 patient was seen and examined, no active bleeding at this time, hemoglobin stable, EGD today IMPRESSION: No active bleeding Mild esophagitis Los ulceration with hiatal hernia Gastritis PLAN: November patient Start PPI Follow up with the [facility] as an outpatient for possible colonoscopy depending on when he had the last one Okay to discharge from Emily Gutierrez MD Apr 19, 2017 12:25
[2017-04-19 17:27] LABS: BLOOD, URINE NEG (NEG); COMMENT (UR) CULTURE INDICATED; CULTURE IF INDICATED CULTURE INDICATED; GLUCOSE,URINE TRACE mg/dL (NEG); HYALINE CAST, URINE 3 /lpf (RARE); KETONE, URINE NEG (NEG); NITRITE,URINE NEG (NEG); URINE COLOR YELLOW (YELLW/STRAW)
[2017-04-20] MEDS: SODIUM CHLOR 0.9% 1000 ML INJ 1,000 ML IV SCH
[2017-04-20 01:34] VITALS: BP 118/55; PULSE 74; RESP 18; TEMP 98.4; O2SAT 98
[2017-04-20] MEDS: LEVOTHYROXINE SODIUM 100 MCG TAB PO SCH (05:28)
[2017-04-20 08:20] VITALS: BP 163/78; PULSE 90; RESP 20; TEMP 98.2; O2SAT 96
[2017-04-20] MEDS: ESCITALOPRAM OXALATE 20 MG TAB PO SCH (08:29)
[2017-04-20] MEDS: amLODIPine BESYLATE 5 MG TAB PO SCH (08:29)
[2017-04-20] MEDS: SODIUM CHLORIDE 0.9% FLUSH 10 ML FLUSH IV FLUSH SCH ×2 (08:32→21:00)
[2017-04-20] MEDS: GALANTAMINE HYDROBROMIDE 4 MG TAB PO SCH (08:32)
[2017-04-20] MEDS: risperiDONE 1 MG TAB PO SCH (08:32)
--- NOTE | 2017-04-20 10:45 | HHI.FF ---
Face to Face Verification Diagnosis: (1) Dementia (2) Dehydration (3) GERD with esophagitis (4) Gastritis (5) Gastric ulcer (6) Upper GI bleed (7) Hypothyroidism (8) Hypertension (9) Weakness Physical Therapy Order: Evaluate and Treat, Improve ambulation, Strength and gait training Home Health Nursing Order: Medical education Signs/symptoms of disease process Nursing assessment with vital signs Home Health Aide Order: To Assist In: Bathing and personal care, rn charge and meal prep Training Development Manager Order: To Evaluate: Living conditions/environment, Support services Order: To Provide: Long range planning, Community services I have seen patient Marissa Alvarez on 04/20/17. My clinical findings support the need for the requested home health care services because: Ltd mobility - disease progression Deconditioned w/ increased weakness Med compliance is questionable Limited ability to care for self Need for psychosocial assistance Impaired cognition/judgement I certify that my clinical findings support that this patient is homebound because: Impaired cognitive ability/safety Unsteady gait/balance Unsafe to leave home unassisted Need for psychosocial assistance Unable to use public transportation Svetlana Jarvis PA-C Apr 20, 2017 10:45
--- NOTE | 2017-04-20 11:20 | HHI.PR ---
Subjective Remarks Follow up for GIB, AMS, weakness. The patient is seen sleeping in bed, easily awakens to voice. He is oriented to self/birthdate only. [place] which he describes as an "exercise place where they get people ready". He says the year is 2052. He says the president is "someone who wanted to be president before but couldn't get nominated, oh I forget his name. " He is able to tell me his sister's name Berny Alvarez. The patient admits to drinking alcohol, reports 2-3 drinks 4x/week. He denies any problem with alcohol withdrawal. Denies any current tremors or hallucinations. He has no other medical complaints at this time. Objective Vitals Vital Signs Date Time Temp Pulse Resp B/P (MAP) Pulse Ox O2 Delivery O2 Flow Rate FiO2 04/20/17 08:20 98.2 90 20 163/78 (106) 96 04/20/17 01:34 98.4 74 18 118/55 (76) 98 04/19/17 21:28 98.7 83 18 119/60 (79) 97 04/19/17 17:00 97.5 100 18 123/58 (79) 96 04/19/17 15:00 114 04/19/17 12:36 80 16 132/72 (92) 96 04/19/17 12:30 97.8 70 18 155/79 (104) 95 04/19/17 12:29 98.1 80 16 107/64 (78) 94 I/O 04/19/17 04/19/17 04/19/17 04/20/17 04/20/17 04/20/17 07:00 15:00 23:00 07:00 15:00 23:00 Intake Total 200 ml Balance 200 ml Other 200 ml Result Diagram: 04/19/17 0640 04/19/17 0640 Imaging Last Impressions Head CT 04/18/17 0000 Signed Impressions: Service Date/Time: March 17:49 - CONCLUSION: No acute intracranial abnormality. Atrophy again noted. Haim Valencia MD Chest X-Ray 04/17/17 9093 Signed Impressions: Service Date/Time: Wednesday, April 17, 2017 17:56 - CONCLUSION: No evidence of acute cardiopulmonary disease. Probable hiatal hernia present. Haim Valencia MD Objective Remarks GENERAL: Well-nourished, well-developed pleasantly confused elderly male patient in [place]. SKIN: Warm and dry. No rash. HEENT: Normocephalic. Atraumatic.Pupils equal and round. Mucous membranes pink and moist. NECK: Supple. Trachea midline. CARDIOVASCULAR: Regular rate and rhythm. S1, S2 noted. No murmur appreciated. RESPIRATORY: No accessory muscle use. Clear to auscultation. Breath sounds equal bilaterally. GASTROINTESTINAL: Abdomen soft, non-tender, nondistended. Normoactive bowel sounds x4. MUSCULOSKELETAL: No obvious deformities. Extremities without clubbing, cyanosis , or edema. NEUROLOGICAL: Awake and alert, oriented to self only. No obvious cranial nerve deficits. Motor grossly within normal limits. 5/5 muscle strength in bilateral upper and lower extremities. Normal speech. PSYCHIATRIC: Calm but confused mood; insight and judgment limited. Medications and IVs Current Medications Medications (Trade) Dose Ordered Sig/[place] Route Start Time Stop Time Status Last Admin Pantoprazole Sodium 80 mg/ Sodium Chloride 100 ml @ 10 mls/hr CONTINUOUS IV 04/17/17 20:15 04/18/17 20:15 (NS Flush) 2 ml UNSCH PRN IV FLUSH 04/17/17 21:45 (NS Flush) 2 ml BID IV FLUSH 04/18/17 09:00 04/19/17 20:40 (Narcan Inj) 0.4 mg UNSCH PRN IV PUSH 04/17/17 21:45 (Norvasc) 5 mg DAILY PO 04/18/17 09:00 04/20/17 08:29 (Lexapro) 20 mg DAILY PO 04/18/17 09:00 04/20/17 08:29 (Razadyne) 2.4 mg DAILY PO 04/18/17 09:00 04/20/17 08:32 (risperDAL) 1 mg DAILY PO 04/18/17 09:00 04/20/17 08:32 (Synthroid) 100 mcg DAILY@0600 PO 04/19/17 08:15 04/20/17 05:28 A/P Assessment and Plan 71-year-old male with past medical history of dementia, GERD/PUD [facility] and weakness over the past several weeks. Generalized weakness: Workup as below. PT eval and treat. Acute encephalopathy: Minimally improved, suspect worsening dementia with chronic alcohol use. Alcohol level wnl. Head CT with age-related changes, no acute process. TSH elevated. Questionable medication compliance. Drug screen and UA negative. Monitor neuro checks. Check ammonia, RPR, vit b12, vit D, folate. GI bleed: Hemoccult positive in the ED. Reported history of GERD/ulcers. Normocytic anemia, currently stable. Change Protonix drip to po protonix. Consulted gastroenterology, EGD done 04/19, showed large hiatal hernia with erythema, mild esophagitis, gastritis, small gastric ulcer, no active bleeding. Monitor H&H, currently stable. Tolerating oral intake. Atypical chest pain: Possibly secondary to GI etiology as above. ACS ruled out per protocol. Troponin negative 3. EKG with NSR, nonspecific T-wave changes. CXR clear, hiatal hernia. Hold aspirin with GI bleed. Monitor on telemetry. No further complaints. PEBBLES: Creatinine 1.75, previously 0.85 on 11/06/15. Given IVF. Repeat Cr 1.15, much improved. Avoid nephrotoxins. Hypokalemia: Potassium 3.0. Magnesium within normal limits. Replaced orally and by IV. Follow up potassium. Mood disorder: Possibly exacerbating encephalopathy as above. Continue home Risperdal, escitalopram. Hypertension: BP controlled. Continue amlodipine. Hypothyroidism: By history and elevated TSH, suspect medication noncompliance. Resume levothyroxine at 100 g and follow-up thyroid function in 4 weeks. Alcohol Use: chronic, no signs of withdrawal, no tremor/hallucinations. Give thiamine/folate/MV. Continue to monitor. DVT prophylaxis: SCDs, avoid chemoprophylaxis with GI bleeding as above. Discharge Planning Discharge pending further clinical improvement. Possibly tomorrow. Svetlana Jarvis PA-C Apr 20, 2017 11:20 am
[2017-04-20 12:01] LABS: HEMATOCRIT 27.6 % (39.0-51.0); MEAN CELL VOLUME 86.5 FL (80.0-100.0); MEAN CORPUSCULAR HEMOGLOBIN 27.6 PG (27.0-34.0); PLATELET COUNT 202 TH/MM3 (150-450); RED BLOOD COUNT 3.19 MIL/MM3 (4.50-5.90); RED CELL DISTRIBUTION WIDTH 19.7 % (11.6-17.2); REVIEW FLAG FINAL; WHITE BLOOD COUNT 7.1 TH/MM3 (4.0-11.0)
[2017-04-20 12:26] LABS: BICARBONATE 27.1 MEQ/L (21.0-32.0); POTASSIUM 3.5 MEQ/L (3.5-5.1)
[2017-04-20] MEDS: FOLIC ACID 1 MG TAB PO SCH (13:00)
[2017-04-20] MEDS: THIAMINE HCL 100 MG TAB PO SCH (13:00)
[2017-04-20] MEDS: MULTIVITAMINS/MINERALS THERAPEUTIC TAB PO SCH (13:01)
[2017-04-20] MEDS: PANTOPRAZOLE SOD 40 MG DELAYED RELEASE TAB PO SCH (13:01)
[2017-04-20 16:30] VITALS: BP 98/53; PULSE 77; RESP 18; TEMP 97.9; O2SAT 96
[2017-04-20] MEDS ORDERED: LACTULOSE SYRUP 20 GM/30 ML CUP PO ONE (17:30)
[2017-04-20] MEDS ORDERED: ERGOCALCIFEROL (VIT D2) 50,000 UNIT CAP PO ONE (18:00)
[2017-04-20 22:09] VITALS: BP 104/64; PULSE 64; RESP 18; TEMP 98.5; O2SAT 97
[2017-04-21] MEDS: LEVOTHYROXINE SODIUM 100 MCG TAB PO SCH (05:15)
[2017-04-21 05:23] VITALS: BP_SYST 131; BP_SYST 168; BP_DIAS 66; BP_DIAS 87; PULSE 81; RESP 18; TEMP 98.8; O2SAT 97
[2017-04-21 08:00] VITALS: BP 144/99; PULSE 117; RESP 20; TEMP 97.9; O2SAT 95
[2017-04-21] MEDS: SODIUM CHLORIDE 0.9% FLUSH 10 ML FLUSH IV FLUSH SCH (09:00)
[2017-04-21] MEDS ORDERED: LEVO.1 PO (09:15)
[2017-04-21] MEDS ORDERED: PANT40TA3 PO (09:15)
[2017-04-21] MEDS: ESCITALOPRAM OXALATE 20 MG TAB PO SCH (09:19)
[2017-04-21] MEDS: MULTIVITAMINS/MINERALS THERAPEUTIC TAB PO SCH (09:19)
[2017-04-21] MEDS: THIAMINE HCL 100 MG TAB PO SCH (09:19)
[2017-04-21] MEDS: PANTOPRAZOLE SOD 40 MG DELAYED RELEASE TAB PO SCH (09:19)
[2017-04-21] MEDS: risperiDONE 1 MG TAB PO SCH (09:19)
[2017-04-21] MEDS: GALANTAMINE HYDROBROMIDE 4 MG TAB PO SCH (09:20)
[2017-04-21] MEDS: FOLIC ACID 1 MG TAB PO SCH (09:20)
[2017-04-21] MEDS: amLODIPine BESYLATE 5 MG TAB PO SCH (09:20)
--- NOTE | 2017-04-21 09:30 | HHI.DCPOC ---
Discharge Care Plan Diagnosis: (1) Gastric ulcer (2) GERD with esophagitis (3) Gastritis (4) Hypothyroidism (5) Weakness (6) Hypertension (7) Dehydration Goals to Promote Your Health * To prevent worsening of your condition and complications * To maintain your health at the optimal level Directions to Meet Your Goals Take your medications as prescribed Follow your dietary instruction Follow activity as directed Keep your appointments as scheduled Take your immunizations and boosters as scheduled If your symptoms worsen call your PCP, if no PCP go to Urgent Care Center or Emergency Room Smoking is Dangerous to Your Health. Avoid second hand smoke Call the 24-hour hour crisis hotline for domestic abuse at Svetlana Jarvis PA-C Apr 21, 2017 9:30 am
[2017-04-21] MEDS ORDERED: CHOL5000 PO (10:36)
--- NOTE | 2017-04-21 11:49 | HHI.DS ---
Discharge Summary Admission Date Apr 17, 2017 at 9:23 pm Discharge Date: Apr 21, 2017 Admitting Diagnosis GI Bleed/Dyspnea with Exertion (1) Upper GI bleed ICD Code: K92.2 - Gastrointestinal hemorrhage, unspecified Diagnosis: Principal Status: Acute (2) Guaiac positive stools ICD Code: R19.5 - Other fecal abnormalities Diagnosis: Principal Status: Acute (3) Gastric ulcer ICD Code: K25.9 - Gastric ulcer, unspecified as acute or chronic, without hemorrhage or perforation Diagnosis: Principal (4) GERD with esophagitis ICD Code: K21.0 - Gastro-esophageal reflux disease with esophagitis Diagnosis: Principal (5) Gastritis ICD Code: K29.70 - Gastritis, unspecified, without bleeding Diagnosis: Principal (6) Weakness ICD Code: R53.1 - Weakness Diagnosis: Secondary (7) Hypertension ICD Code: I10 - Essential (primary) hypertension Diagnosis: Secondary Status: Chronic (8) Hypothyroidism ICD Code: E03.9 - Hypothyroidism, unspecified Diagnosis: Secondary Status: Chronic (9) Vitamin D deficiency ICD Code: E55.9 - Vitamin D deficiency, unspecified Diagnosis: Secondary Procedures EGD done 04/19, showed large hiatal hernia with erythema, mild esophagitis, gastritis, small gastric ulcer, no active bleeding. Brief History - From Admission History from patient, ER. PA Communication, and review of medical records sent by the [facility]. Patient himself is somewhat of a poor historian. He was found at the time of my exam on 4 point restraints. He tells me that this is 1978. He thinks it was September. He thinks Peña Astorga is the president. However he is very pleasant and wouldn't answer questions. He basically does not remember why he was in the hospital. He states that he was visiting a friend in He knows he was in a hotel. As per [facility] paperwork that was sent with the patient, patient was seen at the [facility] clinic yesterday April 17, 2017. He was accompanied by his sister. He was complaining of intermittent severe weakness over several months, falling from bed about 3 times in the past few weeks. Sister was reported that patient was having extreme fatigue and sweating with exertion. Patient has had weight loss of 17 pounds since May 2016 visit to the [facility] clinic. Further records, patient has chronic intermittent nausea and diarrhea as well. Does have chronic memory problems. Sister reports that patient forgets to take his medications at times. last seen by pcp previous to today was 01/2016 because he forgets appointments In the emergency room, patient was found to have positive guaiac. Apparently there was also complained of dark stool. CBC/BMP: 04/20/17 1133 04/20/17 1133 Significant Findings Laboratory Tests Test 04/18/17 12:15 04/18/17 20:30 04/19/17 06:40 04/19/17 16:31 Troponin I LESS THAN 0.02 NG/ML LESS THAN 0.02 NG/ML Red Blood Count 3.47 MIL/MM3 (4.50-5.90) Hemoglobin 9.8 GM/DL (13.0-17.0) Hematocrit 30.1 % (39.0-51.0) Red Cell Distribution Width 19.5 % (11.6-17.2) Potassium Level 3.0 MEQ/L (3.5-5.1) Estimat Glomerular Filtration Rate 62 ML/MIN (>89) Thyroid Stimulating Hormone 3rd Gen 11.800 uIU/ML (0.358-3.740) Urine Leukocyte Esterase TRACE (NEG) Urine WBC 8 /hpf (0-5) Test 04/20/17 11:33 04/20/17 13:30 04/21/17 05:50 Red Blood Count 3.19 MIL/MM3 (4.50-5.90) Hemoglobin 8.8 GM/DL (13.0-17.0) Hematocrit 27.6 % (39.0-51.0) Red Cell Distribution Width 19.7 % (11.6-17.2) Random Glucose 155 MG/DL (74-106) Estimat Glomerular Filtration Rate 67 ML/MIN (>89) 25-Hydroxy Vitamin D Total 4.9 ng/ML (30-100) Ammonia 34 MCMOL/L (11-32) Imaging Last Impressions Head CT 04/18/17 0000 Signed Impressions: Service Date/Time: March 17:49 - CONCLUSION: No acute intracranial abnormality. Atrophy again noted. Haim Valencia MD Chest X-Ray 04/17/17 2788 Signed Impressions: Service Date/Time: Monday, April 17, 2017 17:56 - CONCLUSION: No evidence of acute cardiopulmonary disease. Probable hiatal hernia present. Haim Valencia MD PE at Discharge GENERAL: Well-nourished, well-developed pleasantly confused elderly male patient in [facility]. SKIN: Warm and dry. No rash. HEENT: Normocephalic. Atraumatic.Pupils equal and round. Mucous membranes pink and moist. NECK: Supple. Trachea midline. CARDIOVASCULAR: Regular rate and rhythm. S1, S2 noted. No murmur appreciated. RESPIRATORY: No accessory muscle use. Clear to auscultation. Breath sounds equal bilaterally. GASTROINTESTINAL: Abdomen soft, non-tender, nondistended. Normoactive bowel sounds x4. MUSCULOSKELETAL: No obvious deformities. Extremities without clubbing, cyanosis , or edema. NEUROLOGICAL: Awake and alert, oriented to person, place, time. No obvious cranial nerve deficits. Motor grossly within normal limits. Normal speech. PSYCHIATRIC: Calm mood; insight and judgment limited. Pt update on day of discharge The patient reports feeling much better today. He states last night was the best meal he's had in months. He states he actually ate 2 meals for dinner. He denies any abdominal pain, nausea/vomiting. He is currently oriented to person, [facility] in [place], Apr 21, 2017, and President [facility]. No acute events overnight. He wants to go home. Hospital Course 71-year-old male with past medical history of dementia, GERD/PUD who was sent from the [facility] for shortness of breath and weakness over the past several weeks. Acute encephalopathy: patient had episodes of increased confusion. Suspect worsening dementia/ers and with chronic alcohol use. Alcohol level wnl. Head CT with age-related changes, no acute process. TSH elevated, dosing adjusted. Questionable medication compliance. Drug screen and UA negative. Monitor neuro checks. Ammonia minimally elevated, given lactulose x1. RPR pending. Vit b12 wnl. Vit D very low, given replacement. Patient's mentation much improved on the day of discharge, he is oriented to person/place/date/ president. Discussed with patient to follow up with a neurologist to consider dementia medications for memory. Stable for discharge. GI bleed: Hemoccult positive in the ED. Reported history of GERD/ulcers. Normocytic anemia, currently stable. Given Protonix drip then changed to po protonix. Consulted gastroenterology, EGD done 04/19, showed large hiatal hernia with erythema, mild esophagitis, gastritis, small gastric ulcer, no active bleeding. Monitor H&H, currently stable. Tolerating oral intake. Symptoms resolved. Atypical chest pain: Suspect secondary to GI etiology as above. ACS ruled out per protocol. Troponin negative 3. EKG with NSR, nonspecific T-wave changes. CXR clear, hiatal hernia. Hold aspirin with GI bleed. Monitor on telemetry. No further complaints. PEBBLES: Creatinine 1.75, previously 0.85 on 11/06/15. Given IVF. Repeat Cr 1.15, much improved. Avoid nephrotoxins. Hypokalemia: Potassium 3.0. Magnesium within normal limits. Replaced orally and by IV. Follow up potassium. Mood disorder: Possibly exacerbating encephalopathy as above. Continue home Risperdal, escitalopram. Hypertension: BP controlled. Continue amlodipine. Hypothyroidism: By history and elevated TSH, suspect medication noncompliance. Resume levothyroxine at 100 g and follow-up thyroid function in 6 weeks. Alcohol Use: chronic, no signs of withdrawal, no tremor/hallucinations. Give thiamine/folate/MV. Continue to monitor. Vitamin D Deficiency: Vit D 4.9. Given [id number] replacement and started on 5000u daily at discharge. Pt Condition on Discharge: Stable Discharge Disposition: Disch w/ Home Health Serv Discharge Time: > 30 minutes Discharge Instructions DIET: Follow Instructions for: As Tolerated, No Restrictions Activities you can perform: Regular-No Restrictions Follow up Referrals: Gastroenterology - 1 Week @ [facility] PCP Follow-up - 1 Week with [facility] New Orders: TSH WITH REFLEX FREE T4 - 6 Weeks VITAMIN D,25-HYDROXY - 6 Weeks New Medications: Cholecalciferol (Vitamin D3) 5,000 Unit Cap 5000 UNITS PO DAILY for Nutritional Supplement, #30 CAP 0 Refills Levothyroxine (Synthroid) 100 Mcg Tab 100 MCG PO DAILY@0600 for Thyroid, #30 TAB 1 Refill Pantoprazole (Pantoprazole) 40 Mg Tab 40 MG PO DAILY for gastritis, #30 TAB 1 Refill Continued Medications: Amlodipine (Amlodipine) 5 Mg Tab 5 MG PO DAILY for Blood Pressure Management, #30 TAB 0 Refills Brimonidine Opth Drops (Brimonidine Opth Drops) 0.15% Soln 1 DROP EACH EYE BID for Intraocular pressure, #1 BOTTLE 0 Refills Escitalopram (Escitalopram) 20 Mg Tab 20 MG PO DAILY, #30 TAB 0 Refills Fluticasone Nasal [place] (Fluticasone Nasal [place]) 50 Mcg/Act Naspr 30 MCG EACH NARE DAILY for Allergy Management, #1 BOTTLE 0 Refills 50 mcg/spray Galantamine (Galantamine) 4 Mg Tab 2.4 MG PO DAILY for Alzheimer's Dementia, #60 TAB 0 Refills Risperidone (Risperidone) 1 Mg Tab 1 MG PO DAILY, #30 TAB 0 Refills Timolol Opth Drops (Timolol Opth Drops) 0.5 % Soln 1 DROP EACH EYE DAILY for Glaucoma, #1 BOTTLE 0 Refills Discontinued Medications: Guaifenesin ER (Mucus Relief ER) 600 Mg Tab 400 MG PO DAILY, TAB 0 Refills Svetlana Jarvis PA-C Apr 21, 2017 11:49 am
[2017-04-21 13:07] LABS: AUTOMATED NEUTROPHIL # 5.1 TH/MM3 (1.8-7.7); BASOPHIL % 0.3 % (0.0-2.0); EOSINOPHIL # 0.2 TH/MM3 (0-0.4); EOSINOPHIL % 3.3 % (0.0-4.0); HEMATOCRIT 27.8 % (39.0-51.0); HEMO FLAGS DIFF FINAL; LYMPH % 8.4 % (9.0-44.0); LYMPHOCYTE # 0.6 TH/MM3 (1.0-4.8); MEAN CELL VOLUME 87.2 FL (80.0-100.0); MEAN CORPUSCULAR HEMOGLOBIN 28.4 PG (27.0-34.0); MEAN CORPUSCULAR HGB CONC 32.6 % (32.0-36.0); MONO % 11.2 % (0.0-8.0); NEUT % 76.8 % (16.0-70.0); PLATELET COUNT 189 TH/MM3 (150-450); RED BLOOD COUNT 3.19 MIL/MM3 (4.50-5.90); RED CELL DISTRIBUTION WIDTH 20.1 % (11.6-17.2); WHITE BLOOD COUNT 6.6 TH/MM3 (4.0-11.0)
[2017-04-21 13:25] LABS: ALT (GPT) 172 U/L (12-78); ANION GAP 8 MEQ/L (5-15); AST (GOT) 134 U/L (15-37); BICARBONATE 28.5 MEQ/L (21.0-32.0); BLOOD UREA NITROGEN 15 MG/DL (7-18); CHLORIDE 100 MEQ/L (98-107); GLOMERULAR FILTRATION RATE 81 ML/MIN (>89); POTASSIUM 3.5 MEQ/L (3.5-5.1); SODIUM (NA) 136 MEQ/L (136-145)
[2017-04-21 13:27] LABS: ALKALINE PHOSPHATASE 102 U/L (45-117); TOTAL BILIRUBIN ADULT 0.3 MG/DL (0.2-1.0)
[2017-04-21] MEDS ORDERED: ESCI20TA PO (14:53)
[2017-04-21] MEDS ORDERED: RISP1TAB2 PO (14:53)
== END 2017-04-21 15:46 | disposition home or self-care (01) ==
LOC: NEPC 16:41 → NEDA 21:23 → NEPHCDU 22:04
PROVIDERS: ADMIT Internal Medicine; ATTEND Internal Medicine
DX: K25.9 Gastric ulcer, unspecified as acute or chronic, without hemorrhage or perforation (principal); K29.70 Gastritis, unspecified, without bleeding; K21.0 Gastro-esophageal reflux disease with esophagitis; K44.9 Diaphragmatic hernia without obstruction or gangrene; R19.5 Other fecal abnormalities; R53.1 Weakness; I10 Essential (primary) hypertension; E03.9 Hypothyroidism, unspecified; E55.9 Vitamin D deficiency, unspecified; D50.0 Iron deficiency anemia secondary to blood loss (chronic); E86.0 Dehydration; E87.6 Hypokalemia; F03.90 Unspecified dementia, unspecified severity, without behavioral disturbance, psychotic disturbance, mood disturbance, and anxiety; B95.2 Enterococcus as the cause of diseases classified elsewhere; G93.40 Encephalopathy, unspecified; R29.6 Repeated falls; Z86.010 Personal history of colon polyps; Z87.891 Personal history of nicotine dependence; Z78.1 Physical restraint status
CPT/HCPCS: 00740; 43239; 70450; 71010; 80048; 80053; 80307; 81001; 82140; 82306; 82550; 82552; 82607; 82746; 83735; 83880; 84443; 84484; 85014; 85018; 85025; 85027; 85610; 85730; 86592; 87077; 87086; 87186; 88305; 93005; 96125; 96361; 96365; 96366; 96367; 96372; 96375; 96376; 97110; 97116; 97162; 99285; C9113; G0378; G8987; G8988; G9168; G9169; G9170; J1630; J2405; J3480; J7030